=== PATIENT | female | born 2000 | race Caucasian/White ===

== ENCOUNTER 2021-08-28 17:06 | Observation (INO) ==
[2021-08-28 19:36] LABS: Influenza A virus by PCR Negative (Negative); Influenza B virus by PCR Negative (Negative)
[2021-08-28 19:39] LABS: Appearance Urine Clear (Clear); Bacteria Urine Automated 1+ (Negative); Bilirubin Urine Negative (Negative); Blood Urine Negative (Negative); Color Urine Yellow; Epithelial Cell Urine Auto >30 /lpf (0-5); Glucose Urine UA Negative (Negative); Ketones Urine Negative (Negative); Leukocyte Esterase Urine Trace (Negative); Nitrite Urine Negative (Negative); Protein Urine Negative (Negative); RBC Urine Automated 0-4 /hpf (0-4); Specific Gravity Urine 1.024 (1.000-1.030); Urobilinogen Urine Negative (Negative)
[2021-08-28 19:39] LABS: Basophils # (auto) 0.01 K/uL (0-0.2); Basophils % (auto) 0.2 %; Hematocrit (blood only) 40.2 % (37-47); Hemoglobin 13.6 g/dL (12.0-16.0); Lymphocytes % (auto) 8.3 %; Mean Corpuscular Hemoglobin 31.4 pg (25-34); Mean Corpuscular Hgb Conc 33.8 g/dL (32-36); Mean Corpuscular Volume 92.8 fL (80-100); Mean Platelet Volume 10.8 fL (7.4-10.4); Monocytes # (auto) 0.37 K/uL (0.11-0.59); Monocytes % (auto) 7.7 %; Neutrophils # (auto) 4.05 K/uL (1.4-6.5); Neutrophils % (auto) 83.8 %; Platelet Count 278 K/uL (130-400); RDW Coefficient of Variation 12.3 % (11.5-14.5); Red Blood Count 4.33 M/uL (4.2-5.4); White Blood Count 4.83 K/uL (4.8-10.8)
[2021-08-28] MEDS ORDERED: SODIUM CHLORIDE 0.9% 1000ML 1,000 ML IV ONE (19:58)
[2021-08-28] MEDS ORDERED: ONDANSETRON INJ 2 MG/ML 2 ML VIAL IV STA ×2 (19:58→21:16)
[2021-08-28 20:12] LABS: Albumin Globulin Ratio 1.3 (0.9-2); Albumin Level 2.8 gm/dl (3.4-5.0); Bilirubin,Total 0.3 mg/dl (0.2-1.0); Calcium 6.2 mg/dl (8.5-10.1); Creatinine Clr Calc Pharmacy 126.7 ml/min; Est GFR (Non-African American) 129.4 ml/min; Globulin 2.1 gm/dl (2.5-4.0); Potassium 2.5 mmol/L (3.5-5.1); Total Protein 4.9 gm/dl (6.0-8.3)
[2021-08-28] MEDS ORDERED: cefTRIAXone SODIUM 2,000 MG/70 ML BAG IV STA (20:52)
[2021-08-28] MEDS ORDERED: KETOROLAC TROMETHAMINE 15 MG/ML VIAL IV ONE (20:58)
[2021-08-28] MEDS: POTASSIUM CHLORIDE / WTR 10 MEQ/100 ML PLCT IV SCH ×2 (21:29→22:31)
--- NOTE | 2021-08-28 21:30 | XRay Report ---
XR chest 1V portable CLINICAL HISTORY: fever TECHNIQUE: Single frontal radiograph of the chest was obtained. Comparison: None available at the time of this dictation. FINDINGS: No lines and tubes are seen. The cardiomediastinal silhouette is normal. The lungs are clear. No evid ence of pleural effusion or pneumothorax. IMPRESSION: No acute abnormality and in particular no evidence of pneumonia. ACT 112: Negative or not required by law. Electronically signed by: Patric Jorgensen M.D. 08/28/2021 9:29 PM
--- NOTE | 2021-08-28 21:37 | History & Physical Report ---
Date of Service August 28, 2021 Assessment & Plan (1) Nausea & vomiting: Plan: Healthy 21 y/o female who presents w/ w/ fever, myalgias, vomiting, and RUQ discomfort. She has electrolyte abnormalities, but is stable clinically. The most etiology is viral illness (GI more likely than upper respiratory) especially w/ bf having similar symptoms. Gallbladder pathology is also considered given the RUQ ttp on exam. Symptoms are less likely urinary (pyelo considered given location), (has hx of R ovarian cyst). - RUQ gallbladder US - maintenance IV fluids - upper respiratory biofire ordered in ED - considered GI biofire, but deferred at this time in absence of stool sample - labwork reviewed. liver enzymes are not elevated. lipase wnl. She had slight leukocytosis during her morning ED visit, since resolved. (2) Dehydration: Plan: - maintenance IV fluids. s/p 1L NSS bolus. (3) Hypocalcemia: Plan: - asymptomatic - ecg w/ slight TWI at inferior leads III and avF - reviewed rhythm strip of lead 2 at 2247, no electrolyte related changes per my review - ordered 1g IV calcium gluconate for Ca of 6.2, 7.2 corrected. Check ical w/ AM labs. - ordered repeat Mg, was 1.8 during AM ED visit - check vitamin D in AM - no obvious medication-induced causes (4) Hypokalemia: Plan: - 2.5. repleting w/ IV and PO (5) Syncope: Plan: - x2 episodes most likely 2/2 dehydration from vomiting. monitor clinically. (6) Asymptomatic bacteriuria: Plan: - s/p 1 dose of Rocephin 2g IV - in absence of urinary symptoms, will not treat for UTI (7) Anxiety: Plan: - had been on ssri in past, but not currently taking Plan: FEN/GI: clear liquids. Advance as tolerated on 08/29/21. pps: scds code: full dispo: med tele because of electrolyte disturbances History of Present Illness Chief Complaint: fevers, myalgia, vomiting Primary Care Provider: [facility] 21 year old female who presents w/ fever (102.5 at home), myalgias, vomiting, and RUQ discomfort. Her symptoms started yesterday evening prior to 11pm. She was seen in the ED and evaluated for syncopal episode x2 thought to be 2/2 orthostasis and dehydration from N/V and was discharged home early AM today after fluids and symptom treatment. She had been prescribed oral potassium but did not take as she was not eating. She returns this evening because of generalized malaise and was found to have a potassium of 2.5 and calcium of 6.2 (7.2 corrected). Patient states that she has not had vomiting since [place], but that she has had difficulty w/ PO intake from the nausea. The nausea is worse w/ ambulation. She has a 8/10 pounding frontal and L periorbital headache. She has intermittent headaches chronically. Patient denies hx or family hx of seizures. She denies dysuria or other urinary symptoms. Her bf has had a day of fever and diarrhea. She took 3 tums last night but otherwise denies regular antacid use. etoh: weekend x 4-5 drinks. no tobacco. no mj. She has had flu shot and covid vaccine. Has not had booster. ED course: Rocephin 2g IV. 1L NSS. Had orthostatic symptoms. Allergies Allergy/AdvReac Type Severity Reaction Status Date / Time No Known Allergies Allergy Verified 08/28/21 20:19 Home Medications Medication Instructions Recorded Confirmed Type levonorgestrel 0.15 mg-ethinyl 1 tab PO DAILY 03/21/20 08/28/21 History estradiol 0.03 mg tablet (Lv (28)) ergocalciferol (vitamin D2) 1,250 1,250 mcg PO .WEEKLY #7 cap 08/29/21 Rx mcg (50,000 unit) capsule Past Med/Surg History Medical History (Updated 08/29/21 @ 03:13 by Inder Flores MD) Anxiety Family History (Updated 08/28/21 @ 23:18 by Naga Collazo MD) Mother Autoimmune hepatitis Grandmother (Paternal) Diabetes Hypertension Grandfather (Paternal) Diabetes Hypertension Social History Smoking Status: Unknown if ever smoked Second Hand Exposure: No; Do You Dip or Chew Tobacco: No; Tobacco Cessation Education Requested by Patient: No Hx Alcohol Use: Yes Alcohol type: beer and hard liquor Hx Substance Use: No Preferred Language: Tamaz[place] Communication Ability: Effective Trim Operator Required: No Beliefs That Will Affect Care: None Current Living Situation: Alone Current Living Situation Comment: [employer] [facility] IN [place] BY HERSELF Other Information That Helps Us Care for You: No Feels Safe at Home: Yes Safety Concerns: Feels Safe At This Time Assistive Devices: None Review of Systems Review of Systems: All systems reviewed & are unremarkable except as noted in HPI & below mild chest heaviness. no palpitations fatigue mild sore throat (onset sat AM). recurrent throat issues in past mild ear discomfort. no cough mild nasal congestion no sob loose stools at home x1 episode no loss of taste/smell or rash. no urinary symptoms. Physical Exam Physical Exam: General: A&Ox3. NAD. Cooperative. HEENT: Atraumatic, normocephalic. EOMI. PERRL. TMs wnl. No cervical LAD. No oropharyngeal erythema or tonsillar exudates. L tonsil slightly enlarged compared to R. Pulm: CTAB. -wheezes, -rales, -rhonchi. Symmetrical chest rise. No respiratory distress. Cardiac: RRR, -mrg. Abdominal: Nondistended, soft. RUQ TTP. Integ: Warm, dry, intact. Psych: Affect appropriate. Results & Data Results & Data ([facility]) Vital Signs (Past 12 Hours) Vital Signs Temp Pulse Pulse Resp BP BP Pulse Ox 08/28/21 20:15 86 17 125/69 99 08/28/21 17:09 37.8 C H 97 H 16 111/73 97 Laboratory Results 08/28/21 19:09 08/28/21 19:09 Cardiac Enzymes 08/28/21 Range/Units 19:09 AST 14 (13-39) U/L CBC 08/28/21 Range/Units 19:09 WBC 4.83 D (4.8-10.8) K/uL RBC 4.33 (4.2-5.4) M/uL Hgb 13.6 (12.0-16.0) g/dL Hct 40.2 (37-47) % Plt Count 278 (130-400) K/uL Neut # (Auto) 4.05 (1.4-6.5) K/uL Lymph # (Auto) 0.40 L (1.2-3.4) K/uL [place] # (Auto) 0.37 (0.11-0.59) K/uL Eos # (Auto) 0.00 (0-0.5) K/uL Baso # (Auto) 0.01 (0-0.2) K/uL Comprehensive Metabolic Panel 08/28/21 Range/Units 19:09 Sodium 141 (136-145) mmol/L Potassium 2.5 L* D (3.5-5.1) mmol/L Chloride 115 H (98-107) mmol/L Carbon Dioxide 21 (21-32) mmol/L BUN 9 (6-23) mg/dl Creatinine 0.60 D (0.6-1.2) mg/dl Glucose 75 (70-99(Fasting)) mg/dl Calcium 6.2 L D (8.5-10.1) mg/dl AST 14 (13-39) U/L ALT 9 (7-52) U/L Alkaline Phosphatase 42 (34-104) U/L Total Protein 4.9 L D (6.0-8.3) gm/dl Albumin 2.8 L (3.4-5.0) gm/dl Intake and Output 08/28/21 08/28/21 08/29/21 14:59 22:59 06:59 Intake Total 1170 / 1170 Balance 1170 / 1170 Intake: IV 1170 / 1170 Potassium Chloride / Wtr 10 meq 100 / 100 In 100 ml @ 100 mls/hr IV Q1H [facility] Rx#:[id number] Sodium Chloride 0.9% 1000ML 1, 1000 / 1000 000 ml @ 999 mls/hr IV .Q1H1M ONE Rx#:[id number] cefTRIAXone SODIUM 2,000 mg In 70 / 70 70 ml @ 140 mls/hr IV NOW STA Rx#:[id number] Other: Weight 64.7 kg Weight Measurement Method Chair Scale Patient Weight 08/29/21 06:59 Weight 64.7 kg Diagnostic Findings Chest X-Ray 08/28/21 20:52 XR chest 1V portable CLINICAL HISTORY: fever TECHNIQUE: Single frontal radiograph of the chest was obtained. Comparison: None available at the time of this dictation. FINDINGS: No lines and tubes are seen. The cardiomediastinal silhouette is normal. The lungs are clear. No evidence of pleural effusion or pneumothorax. IMPRESSION: No acute abnormality and in particular no evidence of pneumonia. ACT 112: Negative or not required by law. Electronically signed by: Patric Jorgensen M.D. 08/28/2021 9:29 PM ECG Additional Comments: ecg 1900 per my review. NSR 85 w/slight inus arrhythmia. Normal axis and in tervals. Slight TWI at leads III and avg, new vs 0156 ecg. Code Status & VTE Plan Code Status full VTE Prophylaxis Plan VTE Prophylaxis will be ordered: Yes Supervising Physician Co-Signing Physician Notes Attending addendum: I have supervised the medical residents activities, and agree with the H&P unless as otherwise noted. Assessment and Plan: Intractable nausea vomiting- Order ultrasound right upper quadrant to assess gallbladder function IV fluids Follow bio fire viral panel Dehydration- IV fluids as noted above Hypocalcemia- Calcium 6.2, with correction to 7.2 Check vitamin D levels Empiric treatment with calcium gluconate 1 g IV Hypokalemia- replace with both IV and oral replacement, recheck laboratories in a.m. Remaining orders and notations as noted Resident Activity Tracking Resident Involvement: Resident Care Provided Care Provided: Adult Hospital Medicine (1) Nausea & vomiting Vomiting type: unspecified Qualified Code(s): R11.2 - Nausea with vomiting, unspecified
[2021-08-28] MEDS ORDERED: KETOROLAC TROMETHAMINE 15 MG/ML VIAL IV STA (22:25)
[2021-08-28] MEDS ORDERED: POTASSIUM CHLORIDE CRTAB 20 MEQ TABCR PO STA (22:25)
[2021-08-28] MEDS: SODIUM CHLORIDE 0.9% 1000ML 1,000 ML IV SCH (22:30)
[2021-08-28] MEDS ORDERED: CALCIUM GLUCONATE 1,000 MG/60 ML BAG IV STA (22:44)
[2021-08-29] MEDS ORDERED: ACETAMINOPHEN 325 MG TAB PO PRN (00:40)
[2021-08-29] MEDS ORDERED: ONDANSETRON INJ 2 MG/ML 2 ML VIAL IV PRN (00:40)
[2021-08-29] MEDS ORDERED: STAT IV STA (00:48)
[2021-08-29] MEDS ORDERED: CALCIUM GLUCONATE 10% 1,000 MG in DEXTROSE 5% 50 ML IV ONE (00:48)
[2021-08-29] MEDS: MAGNESIUM SULFATE / D5W 1 GM/100 ML BAG IV SCH ×2 (01:52→04:01)
--- NOTE | 2021-08-29 03:13 | Emergency Department Note ---
Impression & Plan Hypokalemia, Dehydration, Nausea vomiting and diarrhea, Febrile illness, acute ED Provider Note INFORMANT: Patient ED PROVIDER(S): Inder Flores MD CHIEF COMPLAINT: Vomiting diarrhea PLAN: Disposition: Admitted Condition: Good Outpatient prescription management: none Referral: None MEDICAL DECISION MAKING: Patient presented because of persistent symptoms. She was unable to take oral potassium at home. She had an IV established. She was hydrated. She had a mild fever. She was treated with IV saline, Zofran, and Toradol. The patient had labs that revealed significant hypokalemia. IV potassium was ordered. Urinalysis was concerning for infection and culture sent. She was given IV Rocephin. She had a benign abdomen. She had no nuchal rigidity or any significant headache complaints. She is negative for flu and Covid. Given the persistent symptoms and significant hypokalemia further management in the hospital was felt to be appropriate. Consultation was made with Dr. Adonay Brooke of the [facility] service. Patient was evaluated in the ER for further management. Triage Nursing notes reviewed and agree them. Vital Signs: reviewed and remarkable for fever Differential diagnosis: Viral syndrome, otitis, pharyngitis, pneumonia, influenza, meningitis, urinary tract infection, sepsis, bacteremia, as well as other pathologies. Diagnostics interpreted by me: ECG: none Cardiac Monitoring: Cardiac monitoring ordered by me: The patient was placed on continuous cardiac monitoring and observed. It revealed a normal sinus rhythm at 72 beats per minute without ectopy or evidence of dysrhythmia. Imaging studies: Chest x-ray. Findings: A chest x-ray was performed and revealed no pneumothorax, effusion, infiltrate, pulmonary edema, free air under the diaphragm, or wide mediastinum. HPI: The patient is a 21 year old female who presents to the Emergency Room with complaints of vomiting and diarrhea. This started yesterday and is persisting. Patient was in the ER for the same and was hydrated. She had mild hypokalemia. She was discharged with potassium and states she did not take it as she could not eat. Her symptoms persisted and she felt worse and she came back to the emergency department. The patient also notes the following assoc iated symptoms, fever, headache The patient has found no relieving factors. Current pain is rated as 1/10. Pt denies LOC, diaphoresis, visual changes, neck pain, chest pain, breathing difficulties, abdominal pain, back pain, melena, hematochezia, urinary symptoms, numbness, weakness, lymphadenopathy, rash, or other complaints. ROS: See above HPI for pertinent positives & negatives. A total of 10 systems reviewed and were otherwise negative. PAST MEDICAL HISTORY:See Below , pharyngitis PAST SURGICAL HISTORY:See Below, FAMILY HISTORY:See Below SOCIAL HISTORY:See Below, [employer] [facility] [employer] student HOME MEDICATIONS:See Below ALLERGIES:See Below VITALS:See Below PHYSICAL EXAMINATION: GENERAL: Awake, alert, mildly ill appearing, no distress HEAD: Normocephalic, atraumatic. No edema. EYES: Normal conjunctiva. Sclera non-icteric. NOSE: Mild congestion. OROPHARYNX: Lips, tongue, and mucosa unremarkable. No erythema or exudate. NECK: Inspection normal. Non-tender. Supple. No nuchal rigidity. FROM. No adenopathy. Negative jolt accentuation test. RESPIRATORY: CTA bilaterally. No wheezes rales or rhonchi. Normal respiratory effort. CARDIAC: Borderline tachycardic rate. Normal rhythm. No murmurs. No rubs. GI: Soft, non distended. No tenderness to palpation. No rebound or guarding. NEURO: Normal sensorium. Normal speech. SKIN: No rash or jaundice noted. Inder Flores MD Past Med/Surg History Medical History (Updated 08/29/21 @ 03:13 by Inder Flores MD) Anxiety Family History (Updated 08/28/21 @ 23:18 by Naga Collazo MD) Mother Autoimmune hepatitis Grandmother (Paternal) Diabetes Hypertension Grandfather (Paternal) Diabetes Hypertension Social History Smoking Status: Unknown if ever smoked Second Hand Exposure: No; Do You Dip or Chew Tobacco: No; Tobacco Cessation Education Requested by Patient: No Hx Alcohol Use: Yes Alcohol type: beer and hard liquor Hx Substance Use: No Preferred Language: Slovak Communication Ability: Effective Transformation Consultant Required: No Beliefs That Will Affect Care: None Current Living Situation: Alone Current Living Situation Comment: [employer] L[facility] IN [place] BY HERSELF Other Information That Helps Us Care for You: No Feels Safe at Home: Yes Safety Concerns: Feels Safe At This Time Assistive Devices: None Allergies Allergies Allergy/AdvReac Type Severity Reaction Status Date / Time No Known Allergies Allergy Verified 08/28/21 20:19 Home Meds Home Medications Medication Instructions Recorded Confirmed levonorgestrel 0.15 mg-ethinyl 1 tab PO DAILY 03/21/20 08/28/21 estradiol 0.03 mg tablet (Lv (28)) Results & Data (ED) Vital Signs Vital Signs - 24 hr 08/28/21 17:09 08/28/21 20:15 Temperature 37.8 C H Temperature Source Temporal Artery Scan Pulse Rate 97 H Pulse Rate [Apical] 86 Respiratory Rate 16 17 Blood Pressure 111/73 Blood Pressure [Left Arm] 125/69 Blood Pressure Mean 85 Blood Pressure Mean [Left Arm] 87 Pulse Oximetry 97 99 Oxygen Delivery Method Room Air Sepsis Recent Fever Within 48 Hours Yes Sepsis New/Unexplained Change in Mental Status N/A Sepsis Action Taken by Nursing No Action Required Laboratory Data Result diagrams: 08/28/21 19:09 08/28/21 19:09 Lab Results 08/28/21 08/28/21 08/28/21 Range/Units 18:50 18:50 19:09 WBC 4.83 D (4.8-10.8) K/uL RBC 4.33 (4.2-5.4) M/uL Hgb 13.6 (12.0-16.0) g/dL Hct 40.2 (37-47) % MCV 92.8 (80-100) fL MCH 31.4 (25-34) pg MCHC 33.8 (32-36) g/dL RDW Std Deviation 42.0 (36.4-46.3) fL RDW Coeff of Marie 12.3 (11.5-14.5) % Plt Count 278 (130-400) K/uL MPV 10.8 H (7.4-10.4) fL Immature Gran % (Auto) 0.0 % Neut % (Auto) 83.8 % Lymph % (Auto) 8.3 % [place] % (Auto) 7.7 % Eos % (Auto) 0.0 % Baso % (Auto) 0.2 % Neut # (Auto) 4.05 (1.4-6.5) K/uL Lymph # (Auto) 0.40 L (1.2-3.4) K/uL [place] # (Auto) 0.37 (0.11-0.59) K/uL Eos # (Auto) 0.00 (0-0.5) K/uL Baso # (Auto) 0.01 (0-0.2) K/uL Immature Gran # (Auto) 0.00 (0.00-0.02) K/uL Sodium (136-145) mmol/L Potassium (3.5-5.1) mmol/L Chloride (98-107) mmol/L Carbon Dioxide (21-32) mmol/L Anion Gap (3-11) BUN (6-23) mg/dl Creatinine (0.6-1.2) mg/dl Est Cr Clr Drug Dosing ml/min Est GFR ( Amer) ml/min Est GFR (Non-Af Amer) ml/min BUN/Creatinine Ratio (10-20) Glucose (70-99(Fasting)) mg/dl Calcium (8.5-10.1) mg/dl Total Bilirubin (0.2-1.0) mg/dl AST (13-39) U/L ALT (7-52) U/L Alkaline Phosphatase (34-104) U/L Total Protein (6.0-8.3) gm/dl Albumin (3.4-5.0) gm/dl Globulin (2.5-4.0) gm/dl Albumin/Globulin Ratio (0.9-2) Urine Color Yellow Urine Appearance Clear (Clear) Urine pH 6.0 (4.5-7.5) Ur Specific [place] 1.024 (1.000-1.030) Urine Protein Negative (Negative) Urine Glucose (UA) Negative (Negative) Urine Ketones Negative (Negative) Urine Blood Negative (Negative) Urine Nitrite Negative (Negative) Urine Bilirubin Negative (Negative) Urine Urobilinogen Negative (Negative) Ur Leukocyte Esterase Trace H (Negative) Urine WBC (Auto) 10-30 H (0-5) /hpf Urine RBC (Auto) 0-4 (0-4) /hpf U Hyaline Cast (Auto) 1-5 (0-5) /lpf U Epithel Cells (Auto) >30 H (0-5) /lpf Urine Bacteria (Auto) 1+ H (Negative) POC Ur Test NEG (NEG) Influ A Molecular Assay (Negative) Influ B Molecular Assay (Negative) SARS-CoV-2, RNA, NAAT (NEGATIVE) 08/28/21 08/28/2122 Range/Units 19:09 19:09 19:09 WBC (4.8-10.8) K/uL RBC (4.2-5.4) M/uL Hgb (12.0-16.0) g/dL Hct (37-47) % MCV (80-100) fL MCH (25-34) pg MCHC (32-36) g/dL RDW Std Deviation (36.4-46.3) fL RDW Coeff of Marie (11.5-14.5) % Plt Count (130-400) K/uL MPV (7.4-10.4) fL Immature Gran % (Auto) % Neut % (Auto) % Lymph % (Auto) % [place] % (Auto) % Eos % (Auto) % Baso % (Auto) % Neut # (Auto) (1.4-6.5) K/uL Lymph # (Auto) (1.2-3.4) K/uL [place] # (Auto) (0.11-0.59) K/uL Eos # (Auto) (0-0.5) K/uL Baso # (Auto) (0-0.2) K/uL Immature Gran # (Auto) (0.00-0.02) K/uL Sodium 141 (136-145) mmol/L Potassium 2.5 L* D (3.5-5.1) mmol/L Chloride 115 H (98-107) mmol/L Carbon Dioxide 21 (21-32) mmol/L Anion Gap 5 (3-11) BUN 9 (6-23) mg/dl Creatinine 0.60 D (0.6-1.2) mg/dl Est Cr Clr Drug Dosing 126.7 ml/min Est GFR ( Amer) 150.0 ml/min Est GFR (Non-Af Amer) 129.4 ml/min BUN/Creatinine Ratio 15.0 (10-20) Glucose 75 (70-99(Fasting)) mg/dl Calcium 6.2 L D (8.5-10.1) mg/dl Total Bilirubin 0.3 (0.2-1.0) mg/dl AST 14 (13-39) U/L ALT 9 (7-52) U/L Alkaline Phosphatase 42 (34-104) U/L Total Protein 4.9 L D (6.0-8.3) gm/dl Albumin 2.8 L (3.4-5.0) gm/dl Globulin 2.1 L (2.5-4.0) gm/dl Albumin/Globulin Ratio 1.3 (0.9-2) Urine Color Urine Appearance (Clear) Urine pH (4.5-7.5) Ur Specific [place] (1.000-1.030) Urine Protein (Negative) Urine Glucose (UA) (Negative) Urine Ketones (Negative) Urine Blood (Negative) Urine Nitrite (Negative) Urine Bilirubin (Negative) Urine Urobilinogen (Negative) Ur Leukocyte Esterase (Negative) Urine WBC (Auto) (0-5) /hpf Urine RBC (Auto) (0-4) /hpf U Hyaline Cast (Auto) (0-5) /lpf U Epithel Cells (Auto) (0-5) /lpf Urine Bacteria (Auto) (Negative) POC Ur Test (NEG) Influ A Molecular Assay Negative (Negative) Influ B Molecular Assay Negative (Negative) SARS-CoV-2, RNA, NAAT NEGATIVE (NEGATIVE) Administered Medications Sodium Chloride (Nss 1000ml) 1,000 mls @ 100 mls/hr IV .Q10H [facility] Stop: 08/29/21 18:29 Last Infusion: 08/29/21 00:59 Dose: 100 mls/hr Documented by: [id number] Infusion: 08/29/21 00:58 Dose: 0 mls/hr Documented by: [id number] Admin: 08/28/21 22:30 Dose: 100 mls/hr Documented by: [id number] Magnesium Sulfate/Dextrose (Magnesium Sulfate / D5w) 1 gm in 100 mls @ 50 mls/hr IV Q2H [facility] Stop: 08/29/21 04:46 Last Admin: 08/29/21 01:52 Dose: 50 mls/hr Documented by: [id number] Discontinued Medications Sodium Chloride (Nss 1000ml) 1,000 mls @ 999 mls/hr IV .Q1H1M ONE Stop: 08/28/21 20:58 Last Infusion: 08/28/21 20:55 Dose: 0 mls/hr Documented by: [id number] Admin: 08/28/21 20:14 Dose: 999 mls/hr Documented by: [id number] Ceftriaxone Sodium (Rocephin) 2,000 mg in 70 mls @ 140 mls/hr IV NOW STA Stop: 08/28/21 21:21 Last Infusion: 08/28/21 21:29 Dose: 0 mls/hr Documented by: [id number] Admin: 08/28/21 20:55 Dose: 140 mls/hr Documented by: [id number] Potassium Chloride (K Jeremías / Wtr) 10 meq in 100 mls @ 100 mls/hr IV Q1H [facility]; Protocol Stop: 08/28/21 22:59 Last Infusion: 08/28/21 23:36 Dose: 0 mls/hr Documented by: [id number] Admin: 08/28/21 22:31 Dose: 100 mls/hr Documented by: [id number] Infusion: 08/28/21 22:30 Dose: 0 mls/hr Documented by: [id number] Admin: 08/28/21 21:29 Dose: 100 mls/hr Documented by: [id number] Calcium Gluconate () 1,000 mg in 60 mls @ 240 mls/hr IV NOW STA Stop: 08/28/21 22:58 Last Infusion: 08/28/21 23:48 Dose: 0 mls/hr Documented by: [id number] Admin: 08/28/21 23:34 Dose: 240 mls/hr Documented by: [id number] Calcium Gluconate 1,000 mg/ (Dextrose) 60 mls @ 240 mls/hr IV NOW ONE Stop: 08/29/21 01:02 Last Infusion: 08/29/21 02:50 Dose: 0 mls/hr Documented by: [id number] Admin: 08/29/21 01:52 Dose: 240 mls/hr Documented by: [id number] Ketorolac Tromethamine (Ketorolac Tromethamine 15 Mg/Ml Vial) 10 mg IV NOW ONE Stop: 08/28/21 20:59 Last Admin: 08/28/21 21:28 Dose: 10 mg Documented by: [id number] Ketorolac Tromethamine (Ketorolac Tromethamine 15 Mg/Ml Vial) 15 mg IV NOW STA Stop: 08/28/21 22:26 Last Admin: 08/28/21 22:42 Dose: 15 mg Documented by: [id number] Ondansetron HCl (Ondansetron Inj 2 Mg/Ml 2 Ml Vial) 4 mg IV NOW STA Stop: 08/28/21 19:59 Last Admin: 08/28/21 20:14 Dose: 4 mg Documented by: [id number] Ondansetron HCl (Ondansetron Inj 2 Mg/Ml 2 Ml Vial) 4 mg IV NOW STA Stop: 08/28/21 21:17 Last Admin: 08/28/21 21:29 Dose: 4 mg Documented by: [id number] Potassium Chloride (Potassium Chloride Crtab 20 Meq Tabcr) 40 meq PO NOW STA Stop: 08/28/21 22:26 Last Admin: 08/28/21 22:42 Dose: 40 meq Documented by: [id number] Imaging Data Radiologist's Impression: Chest X-Ray 08/28/21 20:52 XR chest 1V portable CLINICAL HISTORY: fever TECHNIQUE: Single frontal radiograph of the chest was obtained. Comparison: None available at the time of this dictation. FINDINGS: No lines and tubes are seen. The cardiomediastinal silhouette is normal. The lungs are clear. No evidence of pleural effusion or pneumothorax. IMPRESSION: No acute abnormality and in particular no evidence of pneumonia. ACT 112: Negative or not required by law. Electronically signed by: Patric Jorgensen M.D. 08/28/2021 9:29 PM Discharge Plan Visit Data Chief Complaint: Flu Like Symptoms Stated Complaint: DIZZY, HEADACHE, NAUSEA, ABD PAIN ED Provider: Inder Flores Discharge Problem: Hypokalemia, Dehydration, Nausea vomiting and diarrhea, Febrile illness, acute Patient Disposition: Admitted As Inpatient Discharge Instructions Interventions: ED Discharge Assessment Last Done: 08/29/21 00:19
[2021-08-29 07:09] LABS: Eosinophils # (auto) 0.01 K/uL (0-0.5); Eosinophils % (auto) 0.3 %; Hematocrit (blood only) 36.4 % (37-47); Immature Granulocytes # (auto) 0.01 K/uL (0.00-0.02); Immature Granulocytes % (auto) 0.3 %; Lymphocytes # (auto) 0.65 K/uL (1.2-3.4); Lymphocytes % (auto) 21.2 %; Mean Corpuscular Hemoglobin 30.7 pg (25-34); Mean Corpuscular Volume 93.1 fL (80-100); Mean Platelet Volume 10.9 fL (7.4-10.4); Monocytes # (auto) 0.48 K/uL (0.11-0.59); Monocytes % (auto) 15.6 %; Neutrophils # (auto) 1.92 K/uL (1.4-6.5); Neutrophils % (auto) 62.6 %; Platelet Count 260 K/uL (130-400); RDW Coefficient of Variation 12.4 % (11.5-14.5); Red Blood Count 3.91 M/uL (4.2-5.4); White Blood Count 3.07 K/uL (4.8-10.8)
--- NOTE | 2021-08-29 07:09 | Ultrasound Report ---
US gallbladder HISTORY: 21 years-old Female RUQ ttp acute right upper quadrant abdominal pain COMPARISON: KUB 08/28/2021 TECHNIQUE: Multiple real-time sonographic images of the abdominal right upper quadrant were obtained assessing grayscale appearance and color flow FINDINGS: The pancreas is obscured by bowel gas. The liver is within normal limits measuring 18 cm in length. T he imaged right kidney is unremarkable without hydronephrosis. Asymmetric edematous gallbladder wall thickening measures up to 4 mm along the hepatic margin. There is no shadowing cholelithiasis or pericholecystic fluid. Trace gallbladder sludge. Sonographic Tate sign was unable to be assessed secondary to recent pain medication administered to the patient. The common bile duct measures 2 mm. IMPRESSION: 1. The gallbladder wall abutting the liver demonstrates edematous thickening. There is trace sludge w ithout cholelithiasis or pericholecystic fluid. This finding is nonspecific however should be correla brodie with laboratory findings and clinical presentation to exclude hepatitis. Acute acalculus cholecys titis considered less likely. 2. No biliary ductal dilation. ACT 112: Negative or not required by law. The above report was generated using voice recognition software. It may contain grammatical, syntax o r spelling errors. Electronically signed by: Jose Rafael Josue M.D. 08/29/2021 7:07 AM
[2021-08-29 07:27] LABS: Albumin Globulin Ratio 1.3 (0.9-2); Albumin Level 3.3 gm/dl (3.4-5.0); BUN Creatinine Ratio 7.6 (10-20); Bilirubin,Total 0.3 mg/dl (0.2-1.0); Creatinine Clr Calc Pharmacy 97.1 ml/min; Est GFR (African American) 123.2 ml/min; Est GFR (Non-African American) 106.3 ml/min; Globulin 2.6 gm/dl (2.5-4.0); Magnesium 2.1 mg/dl (1.7-2.4); Potassium 3.6 mmol/L (3.5-5.1); Total Protein 5.9 gm/dl (6.0-8.3)
[2021-08-29] MEDS: SODIUM CHLORIDE 0.9% 1000ML 1,000 ML IV SCH (10:24)
--- NOTE | 2021-08-29 11:55 | Discharge Summary ---
Date of Service August 29, 2021 Admission HPI Per Admitting Provider 21 year old female who presents w/ fever (102.5 at home), myalgias, vomiting, and RUQ discomfort. Her symptoms started yesterday evening prior to 11pm. She was seen in the ED and evaluated for syncopal episode x2 thought to be 2/2 orthostasis and dehydration from N/V and was discharged home early AM today after fluids and symptom treatment. She had been prescribed oral potassium but did not take as she was not eating. She returns this evening because of generalized malaise and was found to have a potassium of 2.5 and calcium of 6.2 (7.2 corrected). Patient states that she has not had vomiting since c web developer, but that she has had difficulty w/ PO intake from the nausea. The nausea is worse w/ ambulation. She has a 8/10 pounding frontal and L periorbital headache. She has intermittent headaches chronically. Patient denies hx or family hx of seizures. She denies dysuria or other urinary symptoms. Her bf has had a day of fever and diarrhea. She took 3 tums last night but otherwise denies regular antacid use. etoh: weekend x 4-5 drinks. no tobacco. no mj. She has had flu shot and covid vaccine. Has not had booster. ED course: Rocephin 2g IV. 1L NSS. Had orthostatic symptoms. Admission Exam Per Admitting Provider General: A&Ox3. NAD. Cooperative. HEENT: Atraumatic, normocephalic. EOMI. PERRL. TMs wnl. No cervical LAD. No oropharyngeal erythema or tonsillar exudates. L tonsil slightly enlarged compared to R. Pulm: CTAB. -wheezes, -rales, -rhonchi. Symmetrical chest rise. No respiratory distress. Cardiac: RRR, -mrg. Abdominal: Nondistended, soft. RUQ TTP. Integ: Warm, dry, intact. Psych: Affect appropriate. Principal Diagnosis Viral gastroenteritis, vitamin D deficiency Discharge Exam General: A&Ox3. NAD. Cooperative. HEENT: Atraumatic, normocephalic. EOMI. PERRL. TMs wnl. No cervical LAD. No oropharyngeal erythema or tonsillar exudates. Moist mucous membranes Pulm: CTAB. -wheezes, -rales, -rhonchi. Symmetrical chest rise. No respiratory distress. Cardiac: RRR, -mrg. Radial pulses intact and symmetrical. Abdominal: Nondistended, soft. Mild diffuse tenderness. Integ: Warm, dry, intact. Psych: Affect appropriate. Discharge Data Allergies Allergy/AdvReac Type Severity Reaction Status Date / Time No Known Allergies Allergy Verified 08/28/21 20:19 Consultations 08/29/21 03:46 ED Decision to Admit Stat Ordered Studies 08/28/21 22:27 US gallbladder Urgent Hospital Course (1) Nausea & vomiting: Healthy 21 y/o female who presents w/ w/ fever, myalgias, vomiting, and RUQ discomfort. She has electrolyte abnormalities, but is stable clinically. -RUQ US did not suggest cholestatic disease -Ruled to me most likely viral gastroenteritis- symptoms improved after IVF, antiemetics, electrolyte supplementation -Discharged home in stable condition on 08/29 with instruction to resume diet as tolearted (2) Dehydration: - maintenance IV fluids. s/p 1L NSS bolus. - Corrected by time of discharge (3) Hypocalcemia: - 6.2 on admission, repleted to 8 by time of discharge. Low magnesium 1.3 repleted to 2.1. - Elevated PTH 96 and low vitamin D level 15.7 suggestive of secondary hyperparathyroidism [place] to [place] [address] U D2 weekly, 2000 U D3 daily. Check vitamin D level in January 2022 (4) Hypokalemia: - 2.5. repleting w/ IV and PO - 3.6 at time of discharge (5) Syncope: - x2 episodes most likely 2/2 dehydration from vomiting. No syncope during stay. (6) Asymptomatic bacteriuria: - s/p 1 dose of Rocephin 2g IV - in absence of urinary symptoms, deferred treating for UTI (7) Anxiety: - had been on ssri in past, but not currently taking Total Time Total Time Spent Total Time Spent (In Minutes): 30 Discharge Plan Discharge Items Patient Disposition: Home - Self-Care Reason For Visit: FLU-LIKE SYMPTOMS Discharge Diagnosis: Viral gastroenteritis, vitamin D deficiency Activity: Resume your previous activity Non-emergency contact: Primary Care Provider Call non-emergency contact if: you have any medication questions, your symptoms worsen, your pain is worsening and you have a fever Follow-up/Referrals: [facility] [Primary Care Provider] - Diet: Regular Addtl Attending Provider Instructions: You were admitted to the hospital for nausea, fever, vomiting, diarrhea and abdominal pain. Our workup did not reveal any gallbladder-related disease and we concluded the most likely reason for your illness was a stomach bug, known as viral gastroenteritis. You were treated with IV fluids, anti-nausea medication and replacement of the electrolytes such as potassium, magnesium and calcium which were low due to your vomiting. You should gradually resume your normal diet, starting with soft foods/liquids until you can tolerate your regular meals again. We also discovered the low calcium to be related to a vitamin D deficiency. It's not uncommon to have vitamin D deficiency in this area due to limited sunlight. Vitamin D deficiency can cause bone loss in older age so it's important we begin restoring your vitamin D levels now. You will take 50,000 units of vitamin D2 once a week. This is a prescription I will send to [facility] on [facility]. You should also take 2000 units of vitamin D3 daily. This can be obtained over the counter.. Your level should be rechecked in January to give us an accurate estimate of your vitamin D level after supplementation. A discharge summary will be sent to [facility] to ensure continuity of care. Please bring this discharge summary with you to your next office appointment so that your provider can review it at that time. Follow-up appointments: Make a follow-up appointment with [facility] within the next week. It is very important that you follow up with them shortly after discharge from the hospital. Keep all your follow-up appointments as already scheduled. If you cannot make an appointment, notify your provider. Medications: Your medication list has been reviewed and reconciled upon discharge to ensure accuracy and continuity of care. An updated list of all your medications is included with your hospital discharge paperwork. Please review this list closely, and make note of any changes. Take your medications as instructed; do not skip a dose of your medicines. Make sure all of your doctors know every medicine you are taking (including [id number] medicines, vitamins, and supplements). Call your primary care provider before taking any new medicines (including eskg-ung-prghpat medicines, vitamins, and supplements), because some of these may interact with your current medications, or may make your symptoms worse. Tell your primary care provider if you cannot afford your medications. CONTACT YOUR PRIMARY CARE PROVIDER if you experience any of the following: Persistent fever Persistent nausea Vomiting several times Dark colored or bloody vomit Coughing up blood Persistent cough Difficulty following your treatment plan, or difficulty taking medications CALL 911 OR GO TO THE EMERGENCY DEPARTMENT if you experience any of the following: Sudden, severe abdominal pain or nausea/vomiting Severe chest pain, or chest pain that radiates (moves) to your jaw or arm Sudden, severe shortness of breath or difficulty breathing Thank you for allowing us to participate in your care. Pending Studies at Discharge: No Stand-Alone Forms: My [facility] Medications and DC Order Prescriptions: New ergocalciferol (vitamin D2) 1,250 mcg (50,000 unit) capsule 1,250 mcg PO .WEEKLY Qty: 7 RF: 3 Continued levonorgestrel-ethinyl estrad [Lillow (28)] 0.15-0.03 mg Tablet 1 tab PO DAILY RF: 0 Discharge Orders: Discharge Order (Routine); Ordered 08/29/21 Ordered By: Naveen Sanchez Admission Data Admit Date/Time: 08/28/21 22:25 Attending Provider: Michael Ozuna Admit Provider: Naga Collazo Primary Care Provider: [facility] Other Providers: Adonay Brooke Other Interventions: Discharge Summary Assessment (RN) Last Done: 08/29/21 12:22 Supervising Physician Co-Signing Physician Notes I personally examined the patient and verified all lopez points of history and exam, discussed case, and agree with decision making with Dr Sanchez Feeling better eating okay feeling up to going home. Extensive discussion on recovery from viral gastroenteritis, even further extensive discussion on vitamin D deficiency and hypocalcemia. Vitals noted, in general she is awake and alert pleasant no distress. HEENT normocephalic atraumatic mucous membranes moist. Breathing unlabored no accessory muscle use good effort. Skin shows no rashes no pallor or icterus. Neuro without focal deficits. Viral gastroenteritissymptoms and recovery fit by far the most with that. A little bit of nonspecific thickening on her gallbladder on one wallhighly doubt cholecystitisdiscussed with patient if symptoms were to recurespecially recur after fatty mealsthen this may need to be revisited, but given the entire picture fits most with a viral GEtreating as such. Discussed recovery, discussed the potential for post viral malabsorptive diarrhea and a brat diet if needed. Stable for home. Hypocalcemia/vitamin D deficiency with secondary hyperparathyroidismdiscussed at length. Replace vitamin D. Recheck levels in a few months. Recheck again in the of winter to make sure that she holds her levels at that point time too. Continue supplementation. Resident Activity Tracking Resident Involvement: Resident Care Provided Care Provided: Adult Hospital Medicine
--- NOTE | 2021-08-29 19:27 | Billing Data ---
Date of Service August 29, 2021 Coding Level of Care Code D/C DAY MANAGEMENT <30 MINS
--- NOTE | 2021-08-29 19:43 | Billing Data ---
Date of Service August 29, 2021 Coding Level of Care Code 75762 Initial Inpt Care Lvl 2
--- NOTE | 2021-08-30 05:52 | Electrocardiogram Report ---
Test Reason : Blood Pressure : / mmHG Vent. Rate : 085 BPM Atrial Rate : 085 BPM P-R Int : 134 ms QRS Dur : 080 ms QT Int : 350 ms P-R-T Axes : 055 076 006 degrees QTc Int : 416 ms Normal sinus rhythm with sinus arrhythmia When compared with ECG of 28-AUG-2021 01:56, T wave inversion now evident in Inferior leads Confirmed by Cecilio Walker ([id number]) on 08/30/2021 5:51:57 AM Referred By: REFERRED SELF Confirmed By:Cecilio Walker
--- NOTE | 2021-08-30 06:08 | Electrocardiogram Report ---
Test Reason : Blood Pressure : / mmHG Vent. Rate : 072 BPM Atrial Rate : 072 BPM P-R Int : 138 ms QRS Dur : 080 ms QT Int : 384 ms P-R-T Axes : 068 100 030 degrees QTc Int : 420 ms Normal sinus rhythm Rightward axis Borderline ECG When compared with ECG of 28-AUG-2021 19:00, No significant change was found Confirmed by Cecilio Walker ([id number]) on 08/30/2021 6:08:27 AM Referred By: REFERRED SELF Confirmed By:Cecilio Walker
== END 2021-08-29 12:30 | disposition home or self-care (01) | DRG 392 ==
LOC: ED 17:06 → INTOOBSV 22:25 → 2W 22:25 → SUATTDRO 22:25 → 2W 08-29 00:19